=== PATIENT | female | born 1960 | race Caucasian/White ===

== ENCOUNTER → 2023-11-02 12:56 | Outpatient (REF) | payer BC, SELFPAY | LOC: WDC 12:56 | PROVIDERS: ATTENDING PHYSICIAN Obstetrics & Gynecology; FAMILY PHYSICIAN Family Medicine | DX: Z12.31 Encounter for screening mammogram for malignant neoplasm of breast (principal); Z78.0 Asymptomatic menopausal state | CPT/HCPCS: 77063; 77067; 77080 ==

== ENCOUNTER 2024-03-09 17:01 | Emergency (ER) | payer BC, SELFPAY ==
[2024-03-09 17:04] VITALS: BP 204/130
[2024-03-09 17:34] LABS: % Basophils 0.6 % (0-2); % Immature Granulocytes 0.3 % (0-0.5); % Monocytes 5.9 % (1.7-9.3); % Neutrophils 67.2 % (42.2-75.2); Absolute Eosinophils 0.1 10^3/uL (0-0.7); Absolute Lymphocytes 1.8 10^3/uL (1.2-3.4); Absolute Monocytes 0.4 10^3/uL (0.1-0.6); Absolute Neutrophils 4.8 10^3/uL (1.4-6.5); Hematocrit 39.6 % (37.0-47.0); Hemoglobin 13.7 g/dL (12.0-16.0); Mean Corp Hgb Conc. 34.6 g/dL (33.0-37.0); Mean Corpuscular Hgb 29.8 pg (27.0-31.0); Mean Corpuscular Volume 86.3 fL (81.0-99.0); Mean Platelet Volume 9.2 fL (7.4-10.4); Nucleated Red Blood Cells % 0 %; Platelet Count 228 10^3/uL (130-400); Red Blood Cell Count 4.59 10^6/uL (4.20-5.40); Red Cell Dist. Width 12.6 % (11.5-14.5); White Blood Cell Count 7.1 10^3/uL (4.8-10.8)
[2024-03-09 17:45] LABS: ALT (SGPT) 11 U/L (0-35); AST (SGOT) 27 U/L (14-36); Albumin 4.4 g/dl (3.5-5.0); Alkaline Phosphatase 63 U/L (38-126); Blood Urea Nitrogen 18 mg/dl (7-17); Calcium 10.1 mg/dl (8.4-10.2); Carbon Dioxide 26 mmol/L (22-30); Chloride 100 mmol/L (98-107); Glucose 133 mg/dl (70-99); Potassium 4.1 mmol/L (3.5-5.1); Sodium 134 mmol/L (135-145); Total Bilirubin 0.3 mg/dl (0.2-1.3); Total Protein 7.3 g/dl (6.3-8.2); eGFR > 60.00
[2024-03-09 17:49] LABS: D-Dimer < 0.27 ug/mlFEU (0.00-0.50)
[2024-03-09 17:54] LABS: COVID-19 Antigen Negative (Negative)
[2024-03-09 18:03] LABS: NT-proBNP 66.9 pg/ml; Troponin I < 0.012 ng/ml
--- NOTE | 2024-03-09 18:06 | ED.GENMED ---
History of Present Illness
<Alexey Artis MD, Resident - Last Filed: 03/09/24 23:48>
General
Chief Complaint: Cardiac Symptoms
Source: patient and spouse
Time Seen by Provider: 03/09/24 18:05
Nursing documentation reviewed up to this point in time: agreed with
Travel History
Have you traveled to any high risk areas for coronavirus over the past 14 days?: Yes
Have you had any contact with someone who has COVID-19?: No
Do you have any symptoms of coronavirus? Fever > 100 degrees, chills, cough, shortness of breath, sore throat, loss of taste or smell, muscle aches, or headache?: No
History of Present Illness
History of Present Illness:
63-year-old female with PMH of hypercholesterolemia, hypothyroidism, GERD, dyspnea on exertion, fatigue who presented to the emergency department today with complaints of chest pressure and shortness of breath with exertion that started this
morning. She stated that she had a tooth extraction 2 days ago and was put on amoxicillin but still thinks that she has an infection that has gone into her heart. She also reports 2 hours flights to [place] 1 week ago. She denies cough, abdominal
pain, nausea, vomiting, diarrhea, pleuritis, swellings, headache, fever, chills, any sick contacts. 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
Patient has a history of occasional EPPERSON/fatigue with similar symptoms 2 years ago with significant comprehensive workup in 2021 including normal echocardiography, PFT (pre and post bronchodilator), exercise stress echo and Holter monitoring. She
reports that her symptoms improved and she has since gone back to dancing without any significant problems. She reports that her mom and her sister has esophageal reflux.
Past History
<Alexey Artis MD, Resident - Last Filed: 03/09/24 23:48>
Past History
ED Past Medical History: Hypothyroidism (Luis thyroiditis) and Other (IBS, basal cell carcinoma 11/2021)
ED Past Surgical History: Other (Turner teeth extraction, recent root canal)
Patient has exhibited threatening behavior?: No
Social History
Tobacco: Non-smoker
Alcohol: Occasional
Drug: None
Personal:
Living: with family
Employment: Employed
Family History
Family History: Hypertension (Mother) and Asthma (Both patients)
Review of Systems
<Alexey Artis MD, Resident - Last Filed: 03/09/24 23:48>
Review of Systems
All Other Systems: ROS reviewed and negative except as documented in HPI and ROS
Phy Exam
<Alexey Artis MD, Resident - Last Filed: 03/09/24 23:48>
General Physical Exam
General Presentation: well appearing and no apparent distress
General age: appears stated age
Cardiovascular Exam
Cardiovascular Exam: regular rate/rhythm, no edema, no gallop, no murmur and normal peripheral pulses
Pulmonary Exam
Pulmonary Exam: lungs clear, no respiratory distress, no rales, no crackles, no wheezing and no cough
Gastrointestinal Exam
Gastrointestinal Exam: normal bowel sounds, non tender and soft
Neurological Exam
Neurological Exam: alert and oriented x3
Scores
<Alexey Artis MD, Resident - Last Filed: 03/09/24 23:48>
Heart Score for Chest Pain Patients
Heart Score for Chest Pain Patients: 1
Heart Score Risk: 2.5% MACE over next 6 weeks
<Kathryn Baker DO - Last Filed: 03/09/24 19:57>
Heart Score for Chest Pain Patients
STEMI patient?: No
History: Slightly or Non-Suspicious
ECG: Normal
Age: >45 - <65 years
Risk Factors: No Risk Factors
Troponin: </= Normal Limit
Heart Score for Chest Pain Patients: 1
Heart Score Risk: 2.5% MACE over next 6 weeks
Course
<Alexey George Artis MD, Resident - Last Filed: 03/09/24 23:48>
Orders/Labs/Results
Orders:
Orders
03/09/24 17:02
Electrocardiogram (*1) Urgent
Reason for Study: Chest Pain
EKG- Treatment ONCE
03/09/24 17:17
COVID-19 Antigen Urgent
Source: Nasal Swab
Complete Blood Count/With Diff Urgent
Comprehensive Metabolic Panel Urgent
DDimer [D-Dimer] Urgent
NT-proBNP Urgent
Troponin I Urgent
03/09/24 18:44
CXR2 [CR Chest - 2 Views ] Stat
Comment:
Reason For Exam: Chest pain
03/09/24 19:25
Pantoprazole [Protonix] 40 mg PO NOW STA
03/09/24 19:34
CT Chest PE Study Urgent
Comment:
Reason For Exam: EPPERSON, recent tracel/surgery
03/09/24 19:50
Influenza A+B Rapid Molecular Urgent
ANALI Source: Nasal Swab
Specimen Description:
Abnormal Lab Results
03/09/24
17:17
Sodium 134 L mmol/L
(135-145)
BUN 18 H mg/dl
(7-17)
Glucose 133 H mg/dl
(70-99)
03/09/24 17:17
03/09/24 17:17
Vital Signs
Initial and Last Documented VS:
Initial Vital Signs
Temp Pulse Resp BP Pulse Ox
98.2 F 94 20 204/130 99
03/09/24 17:04 03/09/24 17:04 03/09/24 17:04 03/09/24 17:04 03/09/24 17:04
Last Documented Vital Signs
Temp Pulse Resp BP Pulse Ox
98.2 F 79 14 132/80 97
03/09/24 17:04 03/09/24 19:00 03/09/24 19:00 03/09/24 19:00 03/09/24 18:45
<Kathryn Baker, DO - Last Filed: 03/09/24 19:57>
Orders/Labs/Results
Orders:
Orders
03/09/24 17:02
Electrocardiogram (*1) Urgent
Reason for Study: Chest Pain
EKG- Treatment ONCE
03/09/24 17:17
COVID-19 Antigen Urgent
Source: Nasal Swab
Complete Blood Count/With Diff Urgent
Comprehensive Metabolic Panel Urgent
DDimer [D-Dimer] Urgent
NT-proBNP Urgent
Troponin I Urgent
03/09/24 18:44
CXR2 [CR Chest - 2 Views ] Stat
Comment:
Reason For Exam: Chest pain
03/09/24 19:25
Pantoprazole [Protonix] 40 mg PO NOW STA
03/09/24 19:34
CT Chest PE Study Urgent
Comment:
Reason For Exam: EPPERSON, recent tracel/surgery
03/09/24 19:50
Influenza A+B Rapid Molecular Urgent
ANALI Source: Nasal Swab
Specimen Description:
Abnormal Lab Results
03/09/24
17:17
Sodium 134 L mmol/L
(135-145)
BUN 18 H mg/dl
(7-17)
Glucose 133 H mg/dl
(70-99)
03/09/24 17:17
03/09/24 17:17
Vital Signs
Initial and Last Documented VS:
Initial Vital Signs
Temp Pulse Resp BP Pulse Ox
98.2 F 94 20 204/130 99
03/09/24 17:04 03/09/24 17:04 03/09/24 17:04 03/09/24 17:04 03/09/24 17:04
Last Documented Vital Signs
Temp Pulse Resp BP Pulse Ox
98.2 F 79 14 132/80 97
03/09/24 17:04 03/09/24 19:00 03/09/24 19:00 03/09/24 19:00 03/09/24 18:45
<Alexey Artis MD, Resident - Last Filed: 03/09/24 23:48>
MDM/Problems Addressed
MDM/Problems Addressed:
63-year-old female with PMH of hypercholesterolemia, GERD, hypothyroidism presenting today to the emergency department with dyspnea on exertion started this morning. Differential diagnosis include viral pericarditis post-COVID infection, hiatal
hernia, acute PE, GERD. Acute aortic dissection is less likely given her physical exam.
Will check CBC, CMP, D-dimer, troponin, proBNP, COVID-19, flu, and CXR, CT scan.
<Alexey Artis MD, Resident - Last Filed: 03/09/24 23:48>
*Critical Care Note
Total Time (30-74mins, 75-104mins- exclusive of procedures): Not Applicable
<Kathryn Baker DO - Last Filed: 03/09/24 19:57>
*EKG
Interpreted by ED Provider?: Yes
EKG Intrepretation Date: 03/09/24
EKG Intrepretation Time: 19:56
Interpretation: normal
Heart Rate: 87
Rate: normal
Rhythm: sinus
[place]: normal axis
Interval: normal interval
QRS Pattern: normal QRS
Ischemia: no ischemia
<Alexey Artis MD, Resident - Last Filed: 03/09/24 23:48>
Update Note
Update Note:
19:32 CBC, proBNP and troponin within normal limits. CMP remarkable for mild hyponatremia, CXR results are unremarkable.
21: 18 CT chest negative for acute cardiopulmonary process.
ED Attending Note
<Alexey Artis MD, Resident - Last Filed: 03/09/24 23:48>
-
Portions of this chart may have been created with voice recognition software.� Occasional wrong word or��sound alike� substitutions may have occurred due to the inherent limitations of voice recognition software.
<Kathryn Baker DO - Last Filed: 03/09/24 19:57>
ED Attending Note
Patient seen and examined by attending physician: Yes
I performed the substantive portion of visit, reviewed & personally made and approve the management plan that is documented in note by myself or LATOYA.: Yes
I performed a history and physical exam of patient and discussed management with resident, I reviewed resident's note and agree with documented findings and plan of care.: Yes
ED Attending Note:
63-year-old female without significant past medical history presenting to the emergency department for dyspnea on exertion. Patient reports this morning she went to go take a walk and felt very short of breath. She checked her heart rate, noted
that it was elevated. She then had an episode when walking upstairs, and again very short of breath. She notes recent travel from [place], recent dental procedure 2 days ago. She is also on OCPs. However, denies any history of blood clots. She
additionally notes that she was having some mid sternal chest tightness without radiation. Denies any known history of cardiac disease. Reports in the past she did have issues with dyspnea on exertion, however in 2021, after she was diagnosed with
long COVID. She eventually had pulmonary function test that were normal, also had a stress test that was normal. Denies any pain to her lower extremities. Denies abdominal symptoms. Denies fever or cough. Vital signs on arrival are normal.
On exam patient is resting comfortably, no acute distress or discomfort. Unremarkable cardiac and pulmonary exam. No acute respiratory distress. No swelling to lower extremities. No increased work of breathing, no focal abnormal lung sounds.
Patient had EKG upon arrival to the hospital, normal sinus rhythm without acute evidence of ischemia. Patient was initially seen by triage nurse, had laboratory analysis including a D-dimer unable to satisfy PERC rule given OCPs/age/travel.
D-dimer undetectable, at this time lower suspicion for PE. Troponin is undetectable. No cardiac risk factors, nonischemic EKG, without concern for ACS. No signs of volume overload on exam without concern for CHF. Will add on chest x-ray imaging.
19:45 - chest x-ray without acute cardiopulmonary disease. 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 They have elected proceed with advanced
imaging to ensure no additional acute pathology to explain symptoms. Patient otherwise hemodynamically stable with ultimate plan for outpatient follow-up if CT chest within normal limits.
Discharge Plan
Departure
Patient Disposition: Home (Routine Discharge)
Date of Disposition: 03/09/24
Time of Disposition: 21:18
Patient with high blood pressure during this ER visit?: Yes
Condition: Good
Covid-19: Not Applicable
Discharge Problem:
Chest pressure, Hypertension, Acute hyponatremia
Instructions: Chest Pain (DC), BLOOD PRESSURE
Referrals:
Marlyn Shipley MD [Active] - Follow up in 2-3 days
Activity Restrictions/Additional Instructions:
You presented today with shortness of breath on exertion and chest pressure. Your D-dimer, troponin, chest x-ray and CT scan were negative. We also tested for COVID-19 which was also negative. Other than mild hyponatremia, CBC and CMP was also
unremarkable. It is highly unlikely that you are having any heart attack or pulmonary embolism given your negative tests today. Please see your PCP in 2 to 3 days and do not hesitate to come back to the emergency department if your symptoms does
not improve or worsen in the next 24 to 48 hours.
Interventions
Interventions:
*Risk Screen - Suicide Last Done: 03/09/24 18:09
*General Assessment Last Done: 03/09/24 17:04
*Neglect/Abuse Screening Last Done: 03/09/24 18:09
ED- Fall Risk Assessment Last Done: 03/09/24 18:07
*Nursing Disposition Last Done: 03/09/24 21:51
ED- Cardiac Assessment Last Done: 03/09/24 18:07
ED- Pulmonary Assessment Last Done: 03/09/24 18:07
Discharge Date and Time
Discharge Date/Time: 03/09/24 21:51
Print Language: CITIZEN OF [place]
[2024-03-09 19:00] VITALS: BP 132/80
== END 2024-03-09 21:51 | disposition home or self-care (01) ==
LOC: EMR 17:01
PROVIDERS: EMERGENCY PHYSICIAN Student in an Organized Health Care Education/Training Program
DX: R07.89 Other chest pain (principal); I10 Essential (primary) hypertension; E87.1 Hypo-osmolality and hyponatremia; E78.00 Pure hypercholesterolemia, unspecified; E03.9 Hypothyroidism, unspecified; K21.9 Gastro-esophageal reflux disease without esophagitis; R06.00 Dyspnea, unspecified; R53.83 Other fatigue; E06.3 Autoimmune thyroiditis; K58.9 Irritable bowel syndrome, unspecified; Z82.49 Family history of ischemic heart disease and other diseases of the circulatory system; Z85.828 Personal history of other malignant neoplasm of skin
CPT/HCPCS: 99284; 71046; 71275; 80053; 83880; 84484; 85025; 85379; 87502; 87811; 93005; Q9967

== ENCOUNTER → 2024-06-23 10:56 | Outpatient (REF) | payer BC, SELFPAY | LOC: RAD 10:56 | PROVIDERS: ATTENDING PHYSICIAN Family Medicine | DX: R05.1 Acute cough (principal) | CPT/HCPCS: 71046 ==

== ENCOUNTER → 2024-11-08 08:51 | Outpatient (REF) | payer BC, MEDICARE, SELFPAY | LOC: WDC 08:51 | PROVIDERS: ATTENDING PHYSICIAN Family Medicine | DX: Z12.31 Encounter for screening mammogram for malignant neoplasm of breast (principal) | CPT/HCPCS: 77063; 77067 ==

== ENCOUNTER 2025-01-01 06:17 | Day surgery (SDC) | payer BC, MEDICARE, SELFPAY | END 2025-01-01 10:23 | disposition home or self-care (01) | LOC: GI 06:17 | PROVIDERS: ATTENDING PHYSICIAN Internal Medicine Gastroenterology | DX: Z12.11 Encounter for screening for malignant neoplasm of colon (principal); K57.30 Diverticulosis of large intestine without perforation or abscess without bleeding; K64.8 Other hemorrhoids; Z80.0 Family history of malignant neoplasm of digestive organs | CPT/HCPCS: G0105 ==